=== PATIENT | female | born 1945 | race Caucasian/White ===

== ENCOUNTER → 2024-02-06 13:33 | Outpatient (REF) | payer OTHER, SELFPAY | LOC: WDC 13:33 | PROVIDERS: ATTENDING PHYSICIAN Internal Medicine | DX: Z12.31 Encounter for screening mammogram for malignant neoplasm of breast (principal) | CPT/HCPCS: 77063; 77067 ==

== ENCOUNTER → 2024-05-04 13:02 | Outpatient (REF) | payer OTHER, SELFPAY | LOC: HWRCS 13:02 | PROVIDERS: ATTENDING PHYSICIAN Internal Medicine; FAMILY PHYSICIAN Internal Medicine | DX: I10 Essential (primary) hypertension (principal); I45.10 Unspecified right bundle-branch block; I44.0 Atrioventricular block, first degree | CPT/HCPCS: 93306 ==

== ENCOUNTER 2025-03-08 12:25 | Inpatient (IN) | payer OTHER, SELFPAY ==
[2025-03-08] VITALS (12 sets, daily range): BP systolic 135–203; BP diastolic 71–121; BMI 28.3
--- NOTE | 2025-03-08 04:58 | ED.GENMED ---
History of Present Illness
<Timmy Christopher MD - Last Filed: 03/08/25 13:41>
General
Chief Complaint: Flank Pain
Source: patient
Exam Limitations: none
Time Seen by Provider: 03/08/25 04:47
Nursing documentation reviewed up to this point in time: agreed with
History of Present Illness
History of Present Illness:
Patient presents to ED secondary to persistent right flank pain over the past 24 hours. Patient reports nausea sensation without vomiting. Denies fever or chills. Denies trauma. Denies recent illness. Denies recent change in medications or
diet. Denies difficulty with urination. Denies previous history of similar symptoms. Denies family history of kidney stones or gallstones. Patient reports having had normal dinner last night, consisting of chicken pot pie, which did not affect
her pain.
Past History
<Timmy Christopher MD - Last Filed: 03/08/25 13:41>
Past History
ED Past Medical History: Asthma, HTN, NIDDM, Psychiatric (depression) and Other (Sleep apnea, arthritis, RBBB)
ED Past Surgical History: Gynecological (Hysterectomy) and Orthopedic
Social History
Tobacco: Non-smoker
Alcohol: None
Drug: None
Review of Systems
<Timmy Christopher MD - Last Filed: 03/08/25 13:41>
Review of Systems
Allergies reviewed?: Yes
All Other Systems: ROS reviewed and negative except as documented in HPI and ROS
Constitutional: Reports no symptoms; Denies fever
Respiratory: Reports no symptoms
Cardiac: Reports no symptoms
ABD/GI: Reports nausea; Denies vomiting
: Reports flank pain; Denies frequency or difficulty voiding
Musculoskeletal: Reports no symptoms
Skin: Reports no symptoms
Neurological: Reports no symptoms
Phy Exam
<Timmy Christopher MD - Last Filed: 03/08/25 13:41>
Physical Exam
Physical Exam:
Physical Exam
General: mild painful distress, not acutely ill. afebrile
Head: nc/at. eomi
Neck: supple. normal range of motion
Heart: s1/s2 regular rate and rhythm
Lungs: no acute respiratory distress. clear bilaterally
Abdomen: normal bowel sounds. no distention. mild RUQ tenderness to palpation
Neuro: alert and oriented x 3. no focal neurological deficits
Skin: no rash
Psychiatric: well kept. interactive and cooperative
Extremities: no edema. no calf tenderness
Course
<Timmy Christopher MD - Last Filed: 03/08/25 13:41>
Orders/Labs/Results
Orders:
Orders
03/08/25 04:54
US Abdomen Complete/Upper Urgent
Comment:
Reason For Exam: RUQ pain
03/08/25 04:55
Ketorolac [Toradol] 15 mg IV NOW STA
03/08/25 04:56
0.9% Sodium Chloride 250 ml [Nss] 250 ml IV BOLUS
Pantoprazole [Protonix IV] 40 mg IV NOW STA
03/08/25 04:59
Complete Blood Count/With Diff Urgent
Comprehensive Metabolic Panel Urgent
Lipase Urgent
Urinalysis Reflex To Culture Urgent
Date Specimen was Collected: 03/08/25
Time Specimen was Collected: 04:43
Urine Microscopic Reflex Cult Urgent
Urine Culture Urgent
MICHELLE Source: U
Specimen Description:
Date Specimen was Collected: 03/08/25
Time Specimen was Collected: 04:43
03/08/25 Breakfast
1800 calorie (15 carb) Diabetic
At Your Request: Full Participation
03/08/25 06:34
HYDROmorphone [Dilaudid] 0.5 mg IV NOW STA
03/08/25 06:47
CT Abd/pelvis W Iv Cont Urgent
Comment:
Reason For Exam: right sided abdominal pain
03/08/25 09:45
0.9% Sodium Chloride 1000 ml [Nss] 1,000 ml IV BOLUS
Piperacillin/Tazo 4.5 Gram [Zosyn] 4.5 gram in 100 ml IV NOW
03/08/25 10:43
Blood Culture Q30M
MICHELLE Source: Blood/Venous
Specimen Description:
Blood Culture Q30M
MICHELLE Source: Blood/Venous
Specimen Description:
Urine Culture Urgent
MICHELLE Source: Urine
Specimen Description:
Obtained by: Clean Catch/Mid Stream
Date Specimen was Collected: 03/08/25
Time Specimen was Collected: 10:40
03/08/25 11:02
UROLOGY CONSULT Routine
Consulting Provider: Luis Fernando Coleman Jr.
Was physician already notified: Yes
Comment: suspected infected kidney stone pyelonephritis
03/08/25 11:51
Admit/Transfer Patient As Directed
Co-Sign Provider:
Level of Care: Inpatient admission
Assign to:: Telemetry
Physician / Group: Blaise Marx
Diagnosis: Suspected right Pyelonephritis possibly d/t kidney stone
Reason for Telemetry: Arrhythmia
Date to Stop Telemetry: 03/11/25
Time to Stop Telemetry: 11:00
Reason for Hospitalization: Suspected right Pyelonephritis possibly d/t kidney stone
Expected length of stay greater than two midnights?: Yes
ELOS- Estimated Length of Stay in days: 2
I certify the patient meets the requirements for IP care: Yes
PRN Pain Medication Management As Directed
May give lesser potent ordered pain med per pt: Yes
preference::
Protocol:: Medication orders for pain may be administered in a
manner that supports deferring to patient preference
when the pt is:
- Requesting an ordered lesser potent pain medication.
Least to most potent pain medications are defined
as: acetaminophen < NSAID < tramadol < opioids
(morphine, oxycodone, hydromorphone).
- Requesting a lesser dose of the same medication IF
ORDERED.
- Requesting a less intrusive route of administration
if both routes are prescribed by the provider (PO <
IV).
03/08/25 11:59
Code Status As Directed
Resuscitation Status: Full Code
03/08/25 12:04
HYDROmorphone [Dilaudid] 0.5 mg IV NOW STA
03/08/25 13:11
0.9% Sodium Chloride 1000 ml [Nss] 1,000 ml IV 80 mls/hr
Acetaminophen [Tylenol] 650 mg PO Q4HPRN PRN
Bisacodyl [Dulcolax] 10 mg RECTAL [id number] PRN
Bupropion(24Hr)Extended Releas [WELLBUTRIN XL (24 hour extended release)] 150 mg PO DAILY
Dextrose 50%-Water [Dextrose 50% Syringe] 12.5 grams IV [id number] PRN
Diltiazem Extended Release [Cardizem Cd] 270 mg PO DAILY
Docusate W/Senna [Senokot-S] 1 tablet PO BIDPRN PRN
Duloxetine Delayed Release [Cymbalta Delayed Release] 90 mg PO DAILY
Glucagon [GlucaGen] 1 mg IM PRN PRN
HYDROmorphone [Dilaudid] 0.5 mg IV Q4HPRN PRN
HydrALAZINE [Apresoline] 5 mg IV Q4HPRN PRN
Hydrochlorothiazide [Oretic] 25 mg PO DAILY
Ipratropium/Albuterol Sulfate [Duoneb] 3 ml INH R Q4HPRN PRN
Losartan [Cozaar] 100 mg PO DAILY
Polyethylene Glycol Powder [Miralax] 17 grams PO DAILYPRN PRN
vgmevhfwzzy-yrcylyjwp-pnagejir [Trelegy Ellipta] 1 inh INH DAILY
03/08/25 13:11
Activity As Directed
Activity Level: With Assistance
Bedside Glucose Monitoring As Directed
Frequency: AC&HS
Additional Instructions:: Change to q6h if pt on TPN, tube feeding or not eating
Vital Signs As Directed
Frequency: Per unit guidelines
Cpap [RESP] Routine
Patient to use own unit?: Yes
DX Deep Vein Thrombosis Video Routine
03/08/25 13:35
Magnesium Routine
03/08/25 16:30
Insulin Aspart Corrective Low [Novolog Flexpen-Low Resistance] See Protocol SC AC
03/08/25 18:00
Enoxaparin Sodium [Lovenox] 40 mg SC QPM
03/08/25 22:00
Atorvastatin [Lipitor] 10 mg PO HS
03/09/25 06:00
Basic Metabolic Panel IN AM
Complete Blood Count/No Diff IN AM
Glycohemoglobin (HgbA1c) IN AM
Magnesium IN AM
03/09/25 08:00
Montelukast Sodium [Singulair] 10 mg PO DAILY
03/10/25 06:00
Basic Metabolic Panel IN AM
Complete Blood Count/No Diff IN AM
Magnesium IN AM
03/11/25 06:00
Basic Metabolic Panel IN AM
Complete Blood Count/No Diff IN AM
Magnesium IN AM
03/11/25 11:00
DC Protocol for Telemetry ONCE
03/12/25 06:00
Basic Metabolic Panel IN AM
Complete Blood Count/No Diff IN AM
Magnesium IN AM
03/13/25 06:00
Basic Metabolic Panel IN AM
Complete Blood Count/No Diff IN AM
Magnesium IN AM
03/14/25 06:00
Basic Metabolic Panel IN AM
Complete Blood Count/No Diff IN AM
Magnesium IN AM
03/15/25 06:00
Basic Metabolic Panel IN AM
Complete Blood Count/No Diff IN AM
Magnesium IN AM
Abnormal Lab Results
03/08/25
04:59
WBC 17.4 H 10^3/uL
(4.8-10.8)
RBC 6.58 H 10^6/uL
(4.20-5.40)
Hgb 19.9 H g/dL
(12.0-16.0)
Hct 59.7 H %
(37.0-47.0)
Abs Immat Gran (auto) 0.1 H 10^3/uL
(0-0.05)
Absolute Neuts (auto) 12.2 H 10^3/uL
(1.4-6.5)
Absolute Monos (auto) 1.1 H 10^3/uL
(0.1-0.6)
Lymphocytes % 19.4 L %
(20.5-51.1)
Carbon Dioxide 33 H mmol/L
(22-30)
Glucose 200 H mg/dl
(70-99)
Alkaline Phosphatase 136 H U/L
(38-126)
Ur Occult Blood Reflex 1+ A
(Negative)
Leukocyte Esterase Rfl 1+ A
(Negative)
Urine Bacteria (Reflex) Few A
(Negative)
Urine Yeast Many A
(Negative)
Urine Glucose 4+ A
(Negative)
Urine Albumin (Reflex) 3+ A
(Neg - Trace)
03/08/25 04:59
03/08/25 04:59
Vital Signs
Initial and Last Documented VS:
Initial Vital Signs
Temp Pulse Resp BP Pulse Ox
97.9 F 108 20 203/121 95
03/08/25 04:22 03/08/25 04:22 03/08/25 04:22 03/08/25 04:22 03/08/25 04:22
Last Documented Vital Signs
Temp Pulse Resp BP Pulse Ox
97.8 F 84 16 194/99 95
03/08/25 13:20 03/08/25 13:35 03/08/25 13:35 03/08/25 13:35 03/08/25 13:35
<Rachel Reidrober, DO - Last Filed: 03/08/25 09:50>
Orders/Labs/Results
Orders:
Orders
03/08/25 04:54
US Abdomen Complete/Upper Urgent
Comment:
Reason For Exam: RUQ pain
03/08/25 04:55
Ketorolac [Toradol] 15 mg IV NOW STA
03/08/25 04:56
0.9% Sodium Chloride 250 ml [Nss] 250 ml IV BOLUS
Pantoprazole [Protonix IV] 40 mg IV NOW STA
03/08/25 04:59
Complete Blood Count/With Diff Urgent
Comprehensive Metabolic Panel Urgent
Lipase Urgent
Urinalysis Reflex To Culture Urgent
Date Specimen was Collected: 03/08/25
Time Specimen was Collected: 04:43
Urine Microscopic Reflex Cult Urgent
Urine Culture Urgent
MICHELLE Source: U
Specimen Description:
Date Specimen was Collected: 03/08/25
Time Specimen was Collected: 04:43
03/08/25 Breakfast
1800 calorie (15 carb) Diabetic
At Your Request: Full Participation
03/08/25 06:34
HYDROmorphone [Dilaudid] 0.5 mg IV NOW STA
03/08/25 06:47
CT Abd/pelvis W Iv Cont Urgent
Comment:
Reason For Exam: right sided abdominal pain
03/08/25 09:45
0.9% Sodium Chloride 1000 ml [Nss] 1,000 ml IV BOLUS
Piperacillin/Tazo 4.5 Gram [Zosyn] 4.5 gram in 100 ml IV NOW
03/08/25 10:43
Blood Culture Q30M
MICHELLE Source: Blood/Venous
Specimen Description:
Blood Culture Q30M
MICHELLE Source: Blood/Venous
Specimen Description:
Urine Culture Urgent
MICHELLE Source: Urine
Specimen Description:
Obtained by: Clean Catch/Mid Stream
Date Specimen was Collected: 03/08/25
Time Specimen was Collected: 10:40
03/08/25 11:02
UROLOGY CONSULT Routine
Consulting Provider: Luis Fernando Coleman Jr.
Was physician already notified: Yes
Comment: suspected infected kidney stone pyelonephritis
03/08/25 11:51
Admit/Transfer Patient As Directed
Co-Sign Provider:
Level of Care: Inpatient admission
Assign to:: Telemetry
Physician / Group: Blaise Marx
Diagnosis: Suspected right Pyelonephritis possibly d/t kidney stone
Reason for Telemetry: Arrhythmia
Date to Stop Telemetry: 03/11/25
Time to Stop Telemetry: 11:00
Reason for Hospitalization: Suspected right Pyelonephritis possibly d/t kidney stone
Expected length of stay greater than two midnights?: Yes
ELOS- Estimated Length of Stay in days: 2
I certify the patient meets the requirements for IP care: Yes
PRN Pain Medication Management As Directed
May give lesser potent ordered pain med per pt: Yes
preference::
Protocol:: Medication orders for pain may be administered in a
manner that supports deferring to patient preference
when the pt is:
- Requesting an ordered lesser potent pain medication.
Least to most potent pain medications are defined
as: acetaminophen < NSAID < tramadol < opioids
(morphine, oxycodone, hydromorphone).
- Requesting a lesser dose of the same medication IF
ORDERED.
- Requesting a less intrusive route of administration
if both routes are prescribed by the provider (PO <
IV).
03/08/25 11:59
Code Status As Directed
Resuscitation Status: Full Code
03/08/25 12:04
HYDROmorphone [Dilaudid] 0.5 mg IV NOW STA
03/08/25 13:11
0.9% Sodium Chloride 1000 ml [Nss] 1,000 ml IV 80 mls/hr
Acetaminophen [Tylenol] 650 mg PO Q4HPRN PRN
Bisacodyl [Dulcolax] 10 mg RECTAL [id number] PRN
Bupropion(24Hr)Extended Releas [WELLBUTRIN XL (24 hour extended release)] 150 mg PO DAILY
Dextrose 50%-Water [Dextrose 50% Syringe] 12.5 grams IV [id number] PRN
Diltiazem Extended Release [Cardizem Cd] 270 mg PO DAILY
Docusate W/Senna [Senokot-S] 1 tablet PO BIDPRN PRN
Duloxetine Delayed Release [Cymbalta Delayed Release] 90 mg PO DAILY
Glucagon [GlucaGen] 1 mg IM PRN PRN
HYDROmorphone [Dilaudid] 0.5 mg IV Q4HPRN PRN
HydrALAZINE [Apresoline] 5 mg IV Q4HPRN PRN
Hydrochlorothiazide [Oretic] 25 mg PO DAILY
Ipratropium/Albuterol Sulfate [Duoneb] 3 ml INH R Q4HPRN PRN
Losartan [Cozaar] 100 mg PO DAILY
Polyethylene Glycol Powder [Miralax] 17 grams PO DAILYPRN PRN
cncecmcyqvp-oioyqknpj-xtplisob [Trelegy Ellipta] 1 inh INH DAILY
03/08/25 13:11
Activity As Directed
Activity Level: With Assistance
Bedside Glucose Monitoring As Directed
Frequency: AC&HS
Additional Instructions:: Change to q6h if pt on TPN, tube feeding or not eating
Vital Signs As Directed
Frequency: Per unit guidelines
Cpap [RESP] Routine
Patient to use own unit?: Yes
DX Deep Vein Thrombosis Video Routine
03/08/25 13:35
Magnesium Routine
03/08/25 16:30
Insulin Aspart Corrective Low [Novolog Flexpen-Low Resistance] See Protocol SC AC
03/08/25 18:00
Enoxaparin Sodium [Lovenox] 40 mg SC QPM
03/08/25 22:00
Atorvastatin [Lipitor] 10 mg PO HS
03/09/25 06:00
Basic Metabolic Panel IN AM
Complete Blood Count/No Diff IN AM
Glycohemoglobin (HgbA1c) IN AM
Magnesium IN AM
03/09/25 08:00
Montelukast Sodium [Singulair] 10 mg PO DAILY
03/10/25 06:00
Basic Metabolic Panel IN AM
Complete Blood Count/No Diff IN AM
Magnesium IN AM
03/11/25 06:00
Basic Metabolic Panel IN AM
Complete Blood Count/No Diff IN AM
Magnesium IN AM
03/11/25 11:00
DC Protocol for Telemetry ONCE
03/12/25 06:00
Basic Metabolic Panel IN AM
Complete Blood Count/No Diff IN AM
Magnesium IN AM
03/13/25 06:00
Basic Metabolic Panel IN AM
Complete Blood Count/No Diff IN AM
Magnesium IN AM
03/14/25 06:00
Basic Metabolic Panel IN AM
Complete Blood Count/No Diff IN AM
Magnesium IN AM
03/15/25 06:00
Basic Metabolic Panel IN AM
Complete Blood Count/No Diff IN AM
Magnesium IN AM
Abnormal Lab Results
03/08/25
04:59
WBC 17.4 H 10^3/uL
(4.8-10.8)
RBC 6.58 H 10^6/uL
(4.20-5.40)
Hgb 19.9 H g/dL
(12.0-16.0)
Hct 59.7 H %
(37.0-47.0)
Abs Immat Gran (auto) 0.1 H 10^3/uL
(0-0.05)
Absolute Neuts (auto) 12.2 H 10^3/uL
(1.4-6.5)
Absolute Monos (auto) 1.1 H 10^3/uL
(0.1-0.6)
Lymphocytes % 19.4 L %
(20.5-51.1)
Carbon Dioxide 33 H mmol/L
(22-30)
Glucose 200 H mg/dl
(70-99)
Alkaline Phosphatase 136 H U/L
(38-126)
Ur Occult Blood Reflex 1+ A
(Negative)
Leukocyte Esterase Rfl 1+ A
(Negative)
Urine Bacteria (Reflex) Few A
(Negative)
Urine Yeast Many A
(Negative)
Urine Glucose 4+ A
(Negative)
Urine Albumin (Reflex) 3+ A
(Neg - Trace)
03/08/25 04:59
03/08/25 04:59
Vital Signs
Initial and Last Documented VS:
Initial Vital Signs
Temp Pulse Resp BP Pulse Ox
97.9 F 108 20 203/121 95
03/08/25 04:22 03/08/25 04:22 03/08/25 04:22 03/08/25 04:22 03/08/25 04:22
Last Documented Vital Signs
Temp Pulse Resp BP Pulse Ox
97.8 F 84 16 194/99 95
03/08/25 13:20 03/08/25 13:35 03/08/25 13:35 03/08/25 13:35 03/08/25 13:35
<Timmy Christopher MD - Last Filed: 03/08/25 13:41>
*Pulse Oximetry
SaO2: 95
Oxygen Mode of Delivery: Room air
Patient hypoxic: no
*Critical Care Note
Total Time (30-74mins, 75-104mins- exclusive of procedures): Not Applicable
<Rachel Villegas DO - Last Filed: 03/08/25 09:50>
Update Note
Update Note:
Attending Sign Out Note (Rachel Villegas DO)
07:30 -assuming care of of patient, 79-year-old female presenting for upper abdominal pain and flank pain for the past 2 days. Noted to be focally tender to the right upper quadrant region. Workup thus far significant for leukocytosis. Initially
had right upper quadrant ultrasound, unremarkable. For this reason pending CT abdomen and pelvis. Received Dilaudid for pain.
08:45 -patient CT without significant pathology, however there is mention of possible tiny nonobstructing right distal ureteral calculus, not entirely visualized. Urine does show some WBCs otherwise no concerning features of profound urinary
infection, mild leuks. On my reassessment, kidney stone would certainly fit with patient's symptoms, no right lower quadrant abdominal pain with radiation to her flank. In discussion with urology, will review patient's imaging
09:45 -images reviewed and case discussed with Dr. Coleman who is all suspicious for acute stone or infected stone. Feels reasonable for cultures, antibiotics, and consultation. Will continue to monitor symptoms and if no clinical improvement, will
consider scoping her. Will discuss with hospitalist for admission
ED Attending Note
<Timmy Christopher MD - Last Filed: 03/08/25 13:41>
-
Portions of this chart may have been created with voice recognition software.� Occasional wrong word or��sound alike� substitutions may have occurred due to the inherent limitations of voice recognition software.
Discharge Plan
Departure
Patient Disposition: Admit
Date of Disposition: 03/08/25
Time of Disposition: 09:51
Presentation/result/management discussed w/ accepting MD/DO: Hospitalist
Patient with high blood pressure during this ER visit?: No
Condition: Fair
Discharge Problem:
Right sided abdominal pain
Interventions
Interventions:
*Risk Screen - Suicide Last Done: 03/08/25 04:25
*General Assessment Last Done: 03/08/25 04:25
*Neglect/Abuse Screening Last Done: 03/08/25 04:25
*ED- Fall Risk Assessment Last Done: 03/08/25 04:25
*ED COVID-19 Vaccine History Last Done: 03/08/25 04:25
*ED Influenza Vaccine History Last Done: 03/08/25 04:25
*Nursing Disposition Last Done: 03/08/25 13:35
DV-Ziwary-Tviatanzmq Assessment Last Done: 03/08/25 05:29
ED-Female Genitourinary Assessment Last Done: 03/08/25 05:29
Discharge Date and Time
Discharge Date/Time: 03/08/25 13:05
[2025-03-08] MEDS: TORADOL 15 MG IV (05:11)
[2025-03-08] MEDS: PROTONIX IV 40 MG IV (05:12)
[2025-03-08] MEDS: NSS 250 IV (05:13)
[2025-03-08 05:20] LABS: Urine Character Clear (Clear)
[2025-03-08 05:39] LABS: Hematocrit 59.7 % (37.0-47.0); Hemoglobin 19.9 g/dL (12.0-16.0); Mean Corp Hgb Conc. 33.3 g/dL (33.0-37.0); Mean Corpuscular Volume 90.7 fL (81.0-99.0); Nucleated Red Blood Cells % 0 %; Platelet Count 289 10^3/uL (130-400); Red Cell Dist. Width 13.7 % (11.5-14.5)
[2025-03-08 05:41] LABS: ALT (SGPT) 21 U/L (0-35); AST (SGOT) 24 U/L (14-36); Albumin 4.5 g/dl (3.5-5.0); Alkaline Phosphatase 136 U/L (38-126); Blood Urea Nitrogen 16 mg/dl (7-17); Calcium 9.7 mg/dl (8.4-10.2); Carbon Dioxide 33 mmol/L (22-30); Chloride 101 mmol/L (98-107); Glucose 200 mg/dl (70-99); Lipase 174 U/L (23-300); Potassium 3.8 mmol/L (3.5-5.1); Sodium 142 mmol/L (135-145); Total Protein 7.9 g/dl (6.3-8.2); eGFR > 60.00
[2025-03-08 06:23] LABS: Urine Squamous Cell >30 /LPF (Few)
[2025-03-08 06:25] LABS: Urine Red Blood Cell 0-2 /HPF (0-2)
[2025-03-08] MEDS: DILAUDID 0.5 MG IV ×4 (06:52→21:59)
--- NOTE | 2025-03-08 09:56 | HPS.HSE ---
Family Physician
-
Family Physician: Bernard Quintero
Chief Complaint
-
Right Flank pain
History of Present Illness
79F Asthma HTN NIDDM Depression sleep apnea presents w/ persistent right flank pain over the past 24 hours. Reports nausea denies vomiting, fever, chills, trauma, or dysuria. Denies previous history of similar symptoms. ED eval notable for
leukocytosis hypertensive urgency (patient has not taken her morning blood pressure medications prior to presentation to ED). Afebrile, non-tachy, stable respiratory status on room air. CT noted possible right kidney stone distal ureter
nonobstructing.
Medical History
Past Medical History
Past Medical History: Reports Other (as above)
Past Surgical History: Reports Other (as above)
Social History
Tobacco: Non-smoker
Alcohol: None
Drug: None
Personal:
Living: With Family
Family History
Family History: Not pertinent (reviewed)
Allergies / Home Medications
Allergies reflects when Allergies were last updated in [facility].
Home Medications with original date entered in [facility]
Allergy/Medication List:
Allergies
Allergy/AdvReac Type Severity Reaction Status Date / Time
penicillin G Allergy Pharmacy Verified 03/08/25 04:51
to Review
grass/trees Allergy coughing Uncoded 03/08/25 04:51
surgical tape Allergy Rash Uncoded 03/08/25 04:51
Home Medications
atorvastatin 10 mg tablet (Lipitor) 10 mg PO HS 05/09/08
metformin 1,000 mg tablet (Glucophage) 1,000 mg PO DAILY 05/09/08
sitagliptin phosphate 100 mg tablet (Januvia) 100 mg PO DAILY 05/09/08
duloxetine 60 mg capsule,delayed release 90 mg PO DAILY 09/14/13
bupropion HCl 300 mg 24 hr tablet, extended release 150 mg PO DAILY 03/09/16
diltiazem HCl 180 mg tablet,extended release 24 hr (Matzim LA) 270 mg PO DAILY 03/08/25
dulaglutide 1.5 mg/0.5 mL subcutaneous pen injector (Trulicity) 1.5 mg SC QWEEK 03/08/25
empagliflozin 25 mg tablet (Jardiance) 25 mg PO DAILY 03/08/25
fluticasone fur. 100 mcg-umeclid 62.5 mcg-vilant 25 mcg inhalat.powder (Trelegy Ellipta) 1 inh inhalation DAILY 03/08/25
glimepiride 4 mg tablet 8 mg PO DAILY 03/08/25
hydrochlorothiazide 25 mg tablet 25 mg PO DAILY 03/08/25
losartan 100 mg tablet 100 mg PO DAILY 03/08/25
montelukast 10 mg tablet 10 mg PO DAILY 03/08/25
Review of Systems
-
A 12 point ROS was completed and negative except as noted: Yes
Constitutional: Reports Other (as below)
Physical Exam
Vital Signs
Vital Signs
Temp Pulse Resp BP Pulse Ox
97.9 F 108 20 172/93 91
03/08/25 04:22 03/08/25 04:22 03/08/25 04:22 03/08/25 08:00 03/08/25 09:40
Physical Exam
General: Other (as below)
Laboratory Results
-
03/08/25 04:59
03/08/25 04:59
Laboratory Results
Total Bilirubin 0.6 mg/dl (0.2-1.3) 03/08/25 04:59
AST 24 U/L (14-36) 03/08/25 04:59
ALT 21 U/L (0-35) 03/08/25 04:59
Alkaline Phosphatase 136 U/L (38-126) H 03/08/25 04:59
Lipase 174 U/L (23-300) 03/08/25 04:59
Impression/Plan
-
ROS
General: Denies fever chills night sweats unexpected weight loss
Neuro: Denies seizure shaking loss of consciousness dizziness vertigo
Psych: denies depression hallucinations confusion manic episodes
Endocrine: Denies polyuria polydipsia polyphagia heat/cold intolerance
HEENT: Denies blindness visual disturbances epistaxis
Pulmonary: denies coughing hemoptysis sneezing sob dyspnea on exertion
Cardiovascular: denies chest pain palpitations leg swelling
Hematology: denies signs symptoms of anemia easy bruising/bleeding
Gastrointestinal: reports nausea denies vomiting diarrhea constipation hematemesis hematochezia melena
Genito-Urinary: denies retention incontinence dysuria, reports right flank pain/tenderness
Musculoskeletal: denies joint pain weakness
Dermatology: denies rash laceration bruising
Physical Exam
General: No pallor, cyanosis, or jaundice.
HEENT: Throat clear. PERRLA Normocephalic atraumatic
NECK: Supple. No JVD Carotid Bruits
RESPIRATORY: Lungs clear to auscultation. No crackles wheezes stridor
CVS: S1, S2 normal. RRR. No murmur, rub or gallop.
ABDOMEN: Soft, No distension. BS+/normal. right sided flank pain tenderness
EXTREMITIES: No peripheral cyanosis or edema.
GAME AND [employer] PROTECTOR: AOx3 conversant coherent
IMPRESSION:
79F Asthma HTN NIDDM Depression sleep apnea presents w/ persistent right flank pain over the past 24 hours. Reports nausea denies vomiting, fever, chills, trauma, or dysuria. Denies previous history of similar symptoms. ED eval notable for
leukocytosis hypertensive urgency (patient has not taken her morning blood pressure medications prior to presentation to ED). Afebrile, non-tachy, stable respiratory status on room air. CT noted possible right kidney stone distal ureter
nonobstructing.
PLAN:
#suspect Rt Pyelonephritis though UA not suggestive UTI
#nausea
Tele admit
trend WBC, non-septic appearance
received empiric zosyn in ED, cont with Ceftriaxone 2g daily for now
follow urine/blood cx's
Urology Eval
IVF support, unclear how much patient will be able to eat given nausea
compazine prn nausea
pain control prn Tylenol, IV dilaudid Q4HPRN mod severe pain
#Hypertensive Urgency missed BP medications
resume home antihypertensives w/ holding parameters
Cardizem, HCTZ, Losartan
Hydralazine prn SBP>180 or DBP>100
#NIDDM
hold home oral diabetic medications Metformin, Jardiance, Glimepiride
check A1c
Low dose sliding scale for now, monitor and adjust insulin regimen as necessary
carb controlled diet
Patient on Trulicity 1.5 mg she takes on Tuesday
#Depression
cont home Bupropion and Duloxetine
#Asthma
cont home montelukast and Trelegy
stable respiratory status on room air
DVT ppx Lovenox
Full Code
I spent a total of 80 minutes with the patient or on the floor. More than 50% of this time involved counseling and coordination of care.
[2025-03-08] MEDS: ZOSYN 100 IV (10:43)
[2025-03-08] MEDS: NSS 1000 IV ×2 (10:44→15:16)
--- NOTE | 2025-03-08 13:32 | EDRN ---
Patient taken to room 337-1 on stretcher on monitor by sound effects technician.
[2025-03-08 13:57] LABS: Magnesium 2.0 mg/dl (1.6-2.3)
--- NOTE | 2025-03-08 15:12 | RESPNOTE ---
Patient is not bringing her cpap tonight and does not want to use ours , she states she does not think she will be here long and will refuse it tonight
[2025-03-08] MEDS: ROCEPHIN 2000 MG IV (15:57)
[2025-03-08] MEDS: COZAAR 100 MG PO (15:58)
[2025-03-08] MEDS: ORETIC 25 MG PO (15:58)
[2025-03-08] MEDS: STERILE WATER FOR INJECTION 20 ML IV (15:58)
[2025-03-08 16:33] LABS: Glucose - Point of Care 147 mg/dl (70-99)
[2025-03-08] MEDS: APRESOLINE 5 MG IV (16:36)
[2025-03-08] MEDS: COMPAZINE 5 MG IV (16:37)
--- NOTE | 2025-03-08 16:53 | CON.MD ---
Consultation - Medical
-
see dictated note
pt with no prior gu hx
admitted with acute right flank pain
hurts to lie on that side
no urinary sx's or hematuria
wbc elevated/ua negatived/ct with multiple phleboliths- no obstruction with dye- but ? distal right stone
pt still with pain- vomiting but chronic nausea
plan
sx's c/w with stone- but objective data not supportive
will continue iv atnibx/pain control
npo after midnight- if any fevers/wbc does not decline or wbc remains elevated- would consider diagnostic ureteroscopy in OR
options reviewed with patient
Consultation
-
Date/Time Consultation Requested: 03/08/25 at 10am
Date/Time Consultation Performed: 03/08/25 at 5pm
Requesting Provider: ER
Performing Provider: Dr Coleman
Reason for Consultation: flank pain
[2025-03-08] MEDS: SYMBICORT 80/4.5 MCG INHALER 2 PUFF INH (17:58)
[2025-03-08 21:50] LABS: Glucose - Point of Care 145 mg/dl (70-99)
[2025-03-08] MEDS: LIPITOR 10 MG PO (21:58)
[2025-03-09] VITALS (12 sets, daily range): BP systolic 165–214; BP diastolic 63–107
[2025-03-09] MEDS: NSS 1000 IV (02:46)
[2025-03-09] MEDS: DILAUDID 0.5 MG IV ×3 (04:47→22:02)
[2025-03-09] MEDS: APRESOLINE 5 MG IV ×3 (05:20→22:01)
[2025-03-09 06:11] LABS: Glucose - Point of Care 104 mg/dl (70-99)
[2025-03-09 06:23] LABS: Blood Urea Nitrogen 13 mg/dl (7-17); Calcium 8.5 mg/dl (8.4-10.2); Carbon Dioxide 28 mmol/L (22-30); Chloride 105 mmol/L (98-107); Estimated Creatinine Clearance 68 ml/min; Glucose 101 mg/dl (70-99); Magnesium 1.8 mg/dl (1.6-2.3); Potassium 3.2 mmol/L (3.5-5.1); Sodium 137 mmol/L (135-145); eGFR > 60.00
[2025-03-09 06:25] LABS: Hematocrit 47.9 % (37.0-47.0); Hemoglobin 16.5 g/dL (12.0-16.0); Mean Corp Hgb Conc. 34.4 g/dL (33.0-37.0); Mean Corpuscular Volume 87.6 fL (81.0-99.0); Platelet Count 215 10^3/uL (130-400); Red Cell Dist. Width 13.5 % (11.5-14.5)
[2025-03-09] MEDS: NOVOLOG FLEXPEN-LOW RESISTANCE SC (06:31)
--- NOTE | 2025-03-09 07:05 | W.PN.URO.CBU ---
Today's Communication / Plan
-
OR for ureteroscopy
Assessment / Plan
-
? cause of leukocytosis and right flank pain
multiple phleboliths- ? stone
given persistent of sig right flank pain- have rec OR for ureteroscopy- risks, benefits, alternatives and disabilities reviewed
to OR this am
Diagnosis
-
Date of Service: March 09, 2025
-
Patient Diagnosis:
right flank pain
leukocytosis
? stone
Subjective
-
pt afebrile and wbc declining
still with right flank pain requiring IV narcotic
no sig urinary sx's
Objective
-
Vital Signs
Temp Pulse Resp BP Pulse Ox
98.6 F 92 18 189/96 97
03/09/25 03:00 03/09/25 05:15 03/09/25 03:00 03/09/25 05:15 03/09/25 03:00
Intake and Output
03/08/25 03/09/25 03/10/25
06:59 06:59 06:59
Intake Total 1200 / 1200
Balance 1200 / 1200
Intake:
Oral fluids 240 / 240
IV fluids (Total) 960 / 960
Other:
Number of approximated SMALL 1
amounts of urine
Number of approximated MODERATE 1
amounts of urine
Laboratory Results
03/09/25 05:29
03/09/25 05:29
Review of Systems
-
Constitutional: Fatigue
Respiratory: No Symptoms
Cardiac: No Symptoms
Abdomen/GI: Other (flank pain)
: No Symptoms
Physical Exam
-
General - no acute distress
Abdomen - soft, non-tender, mild right cva tenderness
--- NOTE | 2025-03-09 07:36 | W.PN.HOSP.TC ---
Today's Communication/Plan
-
cont abx
ID eval
Blood Pressure, Glycemic, and Rate Control
pain control, antiemetics prn
Assessment / Plan
Assessment / Plan
Physical Exam
General: No pallor, cyanosis, or jaundice.
HEENT: Throat clear. PERRLA Normocephalic atraumatic
NECK: Supple. No JVD Carotid Bruits
RESPIRATORY: Lungs clear to auscultation. No crackles wheezes stridor
CVS: S1, S2 normal. RRR. No murmur, rub or gallop.
ABDOMEN: Soft, No distension. BS+/normal. right sided flank pain tenderness
EXTREMITIES: No peripheral cyanosis or edema.
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
IMPRESSION:
79F Asthma HTN NIDDM Depression sleep apnea presents w/ persistent right flank pain over the past 24 hours. Reports nausea denies vomiting, fever, chills, trauma, or dysuria. Denies previous history of similar symptoms. ED eval notable for
leukocytosis hypertensive urgency (patient has not taken her morning blood pressure medications prior to presentation to ED). Afebrile, non-tachy, stable respiratory status on room air. CT noted possible right kidney stone distal ureter
nonobstructing.
PLAN:
#suspect Rt Pyelonephritis though UA not suggestive UTI
#nausea
Tele admit
trend WBC, non-septic appearance
received empiric zosyn in ED, cont with Ceftriaxone 2g daily for now
follow urine/blood cx's, one aerobic bottle blood cx prelim pos for staph
ID eval requested
Urology Eval appreciated ureteroscopy performed 03/09/25 no obstruction/stone/lesion noted, stent placed
compazine prn nausea
pain control prn Tylenol, IV dilaudid Q4HPRN mod severe pain
#Hypertensive Urgency missed BP medications
resume home antihypertensives w/ holding parameters
Cardizem, HCTZ, Losartan
Hydralazine prn SBP>180 or DBP>100
#NIDDM
hold home oral diabetic medications Metformin, Jardiance, Glimepiride
A1c 6.4 (prediabetic level)
Low dose sliding scale for now, monitor and adjust insulin regimen as necessary
carb controlled diet
Patient on Trulicity 1.5 mg she takes on Tuesday
#Depression
cont home Bupropion and Duloxetine
#Asthma
cont home montelukast and Trelegy
stable respiratory status on room air
DVT ppx Lovenox
Full Code
I spent a total of 50 minutes with the patient or on the floor. More than 50% of this time involved counseling and coordination of care.
Anticipated Discharge: 24 - 48 hours
Subjective/Interval History
-
Date of Service: March 09, 2025
No acute distress, sitting up comfortably in bed, s/p ureteroscopy. Reports lower abd/pain cramping. Denies nausea.
Objective Data
-
Labs:
Laboratory Results
03/09/25
05:29
WBC 12.5 H
Hgb 16.5 H
Hct 47.9 H
Plt Count 215 D
Sodium 137
Potassium 3.2 L
Chloride 105
Carbon Dioxide 28
BUN 13
Creatinine 0.6
Glucose 101 H
Calcium 8.5
Vital Signs:
Vital Signs
Temp Pulse Resp BP Pulse Ox
98.6 F 92 18 189/96 97
03/09/25 03:00 03/09/25 05:15 03/09/25 03:00 03/09/25 05:15 03/09/25 03:00
I&O
03/08/25 03/09/25 03/10/25
06:59 06:59 06:59
Intake Total 1200 / 1200
Balance 1200 / 1200
[2025-03-09] MEDS: SPIRIVA RESPIMAT 2.5 MCG 2 PUFF INH (07:42)
[2025-03-09] MEDS: SYMBICORT 80/4.5 MCG INHALER 2 PUFF INH ×2 (07:43→20:55)
[2025-03-09 07:52] LABS: Glucose - Point of Care 136 mg/dl (70-99)
[2025-03-09] MEDS: GENTAMICIN 53.375 MG IV (08:07)
[2025-03-09 09:22] LABS: Glycohemoglobin (HgbA1c) 6.4 % (4.0-5.9)
--- NOTE | 2025-03-09 09:42 | W.IMMPOSTOP ---
Surgical Immed Post Op Note
-
Surgeon:
Jared
Pre-op Diagnosis:
right flank pain- possible stone
Post-op Diagnosis:
no obstruction/no stone
Procedure Performed:
cysto, right retrograde, right ureteroscopy and stent
Anesthesia Type:
gen
Specimen / Cultures:
none
Estimated Blood Loss:
1cc
Complications:
none
Operative Findings:
nl bladder
no evid of obstruction on retrograde
ureteroscopy revealed no lesion or stone
stent placed
will follow
[2025-03-09 09:54] LABS: Glucose - Point of Care 128 mg/dl (70-99)
[2025-03-09] MEDS: MORPHINE SULFATE 1 MG IV ×2 (10:06→10:13)
[2025-03-09] MEDS: CARDIZEM CD 180 MG PO (10:10)
[2025-03-09] MEDS: COZAAR 100 MG PO (10:11)
[2025-03-09] MEDS: ORETIC 25 MG PO (10:11)
[2025-03-09] MEDS: WELLBUTRIN XL (24 hour extended release) PO ×2 (11:11→13:22)
[2025-03-09] MEDS: WELLBUTRIN XL (24 hour extended release) 150 MG PO (11:11)
[2025-03-09] MEDS: SINGULAIR PO ×2 (11:11→13:21)
--- NOTE | 2025-03-09 11:28 | CON.ID ---
Consultation
-
Date/Time Consultation Requested: 03/09/2025 0950
Date/Time Consultation Performed: 03/09/2025 1128
Requesting Provider: Dr. Marx
Performing Provider: Dr. Mendoza
Reason for Consultation: Suspected pyelonephritis
Chief Complaint / Past History
History of Present Illness
Haritha Joyce is a 79-year-old female being evaluated the request of Dr. Marx in regards to possible pyelonephritis. History is obtained from chart review, along with patient interview.
The patient presents the ER early on 03/08 secondary to right flank pain which had developed over the prior 24-36 hours. Patient admitted to nausea, but without vomiting. She denied any fevers or chills. She denied any dysuria. She notes that
the right flank pain was approximately 9/10 and persistent. It was not moving. She denied any fevers, but did admit to some chills and sweats prior to admission.
Workup in the ER revealed a leukocytosis of 17K. Patient was evaluated by Urology, and ultimately taken to the OR for cystoscopy. No stone was noted on retrograde ureteroscopy.
Patient has been started on empiric antibiotics, and Infectious Diseases is asked to comment upon further antimicrobial management.
Past History
Additional Past Medical History:
Asthma
HTN
DM type II
Depression
Sleep apnea
Arthritis
Hx RBBB
Additional Past Surgical History:
Hysterectomy
Low back surgery
Allergy History:
penicillin G Allergy (Verified 03/08/25 04:51)
Pharmacy to Review
grass/trees Allergy (Uncoded 03/08/25 04:51)
coughing
surgical tape Allergy (Uncoded 03/08/25 04:51)
Rash
Current Antibiotics:
Ceftriaxone 2 gm IV q.24 hours
Social History
Tobacco: Non-Smoker
Alcohol: None
Drug: None
Employment: Retired
Family History
Family History: Not Pertinent
Review of Systems
Vital Signs
Temp Pulse Resp BP Pulse Ox
98.8 F 106 16 186/88 92
03/09/25 11:16 03/09/25 11:16 03/09/25 11:16 03/09/25 11:16 03/09/25 11:16
Physical Exam
Physical Exam
Constitutional: No Acute Distress, Comfortable and Non-toxic
Eyes: No Conjunctival Hemorrhage and Sclera Anicteric
Oral: No Thrush and No Ulcers
Cardiovascular: S1/S2; Negative S3/S4
Pulmonary: Clear; Negative Wheezes or Rales
Gastrointestinal: Soft, Non Tender, Non Distended, Normal Bowel Sounds, No Rebound and No Guarding
Genito-Urinary: Negative Khan, Suprapubic Tenderness or CVA Tenderness
Extremities: Negative Edema, Cyanosis or Erythema
Neurological: Awake and Alert
Psychological: Calm
Lab / Diagnostic Study Results
03/09/25 05:29
03/09/25 05:29
Abs Immat Gran (auto) 0.1 10^3/uL (0-0.05) H 03/08/25 04:59
Absolute Neuts (auto) 12.2 10^3/uL (1.4-6.5) H 03/08/25 04:59
Absolute Lymphs (auto) 3.4 10^3/uL (1.2-3.4) 03/08/25 04:59
Absolute Monos (auto) 1.1 10^3/uL (0.1-0.6) H 03/08/25 04:59
Absolute Basos (auto) 0.1 10^3/uL (0-0.2) 03/08/25 04:59
Immature Gran % 0.4 % (0-0.5) 03/08/25 04:59
Neutrophils % 70.3 % (42.2-75.2) 03/08/25 04:59
Lymphocytes % 19.4 % (20.5-51.1) L 03/08/25 04:59
Monocytes % 6.4 % (1.7-9.3) 03/08/25 04:59
Eosinophils % 2.9 % (0-6) 03/08/25 04:59
Basophils % 0.6 % (0-2) 03/08/25 04:59
Ur Squamous Epith Cells >30 /LPF (Few) 03/08/25 04:59
Microbiology Results
Micro:
03/08/25 10:43 Blood Culture - Preliminary
Blood/Venous No Growth in 24 hours- Final report to follow
03/08/25 10:43 Urine Culture - Final
Urine
03/08/25 04:59 Urine Culture - Final
Urine
03/08/25 10:43 Blood Culture - Preliminary
Blood/Venous Staphylococcus species
Gram Stain - Preliminary
Imaging:
03/08/2025 CT abdomen/pelvis with IV contrast: symmetric renal excretion noted. Cannot entirely exclude tiny nonobstructing distal right ureteral calculus versus phlebolith. Limited evaluation of the intestinal tract without oral contrast, but no
intestinal obstruction or free air noted. Sigmoid diverticulosis noted. Unremarkable appendix. Please see full dictation for additional detail.
03/08/2025 Abdominal ultrasound: liver is normal in size. No focal hepatic lesion or intrahepatic biliary dilatation. Normal directional blood flow through the hepatic and portal veins. Gallbladder is physiologically distended with fluid and
shows no shadowing calculi or
Assessment / Plan
Right flank pain
- Passed stone?
Leukocytosis
Positive blood culture for staph species
- suspect contaminant
Asthma
HTN
DM type II
Depression
Sleep apnea
Arthritis
Hx RBBB
Recommendations:
Continue with empiric ceftriaxone for the present.
Monitor white count and temperature curve.
Follow pending cultures. Suspect single positive blood culture is a contaminant, no need to treat at present.
Continue with supportive measures.
Further recommendations as additional data is returned.
[2025-03-09] MEDS: TYLENOL 650 MG PO (11:53)
[2025-03-09] MEDS: CYMBALTA DELAYED RELEASE 30 MG PO (11:54)
[2025-03-09] MEDS: CARDIZEM SR 90 MG PO (11:54)
[2025-03-09] MEDS: COMPAZINE 5 MG IV (12:13)
[2025-03-09 12:38] LABS: Glucose - Point of Care 159 mg/dl (70-99)
[2025-03-09] MEDS: NOVOLOG FLEXPEN-LOW RESISTANCE 1 UNITS SC (12:50)
[2025-03-09] MEDS: KCL ELIXIR 40 MEQ PO (13:36)
[2025-03-09 16:57] LABS: Glucose - Point of Care 223 mg/dl (70-99)
[2025-03-09] MEDS: ROCEPHIN 2000 MG IV (17:26)
[2025-03-09] MEDS: NOVOLOG FLEXPEN-LOW RESISTANCE 2 UNITS SC (17:27)
[2025-03-09] MEDS: STERILE WATER FOR INJECTION 20 ML IV (17:27)
[2025-03-09 21:28] LABS: Glucose - Point of Care 218 mg/dl (70-99)
[2025-03-09] MEDS: LIPITOR 10 MG PO (22:01)
[2025-03-09] MEDS: KLOR-CON 20 MEQ PO (22:01)
[2025-03-10] VITALS (7 sets, daily range): BP systolic 129–182; BP diastolic 55–89
[2025-03-10 05:44] LABS: Hematocrit 52.6 % (37.0-47.0); Hemoglobin 17.8 g/dL (12.0-16.0); Mean Corp Hgb Conc. 33.8 g/dL (33.0-37.0); Mean Corpuscular Volume 89.6 fL (81.0-99.0); Platelet Count 261 10^3/uL (130-400); Red Cell Dist. Width 13.5 % (11.5-14.5)
[2025-03-10 06:14] LABS: Blood Urea Nitrogen 15 mg/dl (7-17); Calcium 9.5 mg/dl (8.4-10.2); Carbon Dioxide 30 mmol/L (22-30); Chloride 102 mmol/L (98-107); Estimated Creatinine Clearance 58 ml/min; Glucose 153 mg/dl (70-99); Magnesium 1.9 mg/dl (1.6-2.3); Potassium 4.1 mmol/L (3.5-5.1); Sodium 137 mmol/L (135-145); eGFR > 60.00
[2025-03-10] MEDS: TYLENOL 650 MG PO (06:20)
[2025-03-10 07:28] LABS: Glucose - Point of Care 147 mg/dl (70-99)
[2025-03-10] MEDS: NOVOLOG FLEXPEN-LOW RESISTANCE SC (07:39)
[2025-03-10] MEDS: WELLBUTRIN XL (24 hour extended release) 300 MG PO (08:16)
[2025-03-10] MEDS: CARDIZEM CD 240 MG PO (08:17)
[2025-03-10] MEDS: ORETIC 25 MG PO (08:18)
[2025-03-10] MEDS: COZAAR 100 MG PO (08:18)
[2025-03-10] MEDS: CYMBALTA DELAYED RELEASE 30 MG PO (08:18)
[2025-03-10] MEDS: WELLBUTRIN XL (24 hour extended release) 150 MG PO (08:18)
[2025-03-10] MEDS: SINGULAIR 10 MG PO (08:18)
[2025-03-10] MEDS: CYMBALTA DELAYED RELEASE 60 MG PO (08:18)
[2025-03-10] MEDS: KLOR-CON PO (08:23)
[2025-03-10] MEDS: SYMBICORT 80/4.5 MCG INHALER 2 PUFF INH ×2 (08:27→19:56)
[2025-03-10] MEDS: SPIRIVA RESPIMAT 2.5 MCG 2 PUFF INH (08:27)
--- NOTE | 2025-03-10 08:37 | W.PN.HOSP.TC ---
Today's Communication/Plan
-
cont abx as per ID
blood pressure control
glycemic control
pain control
pyridium tolterodine as per Urology
Assessment / Plan
Assessment / Plan
Physical Exam
General: No pallor, cyanosis, or jaundice.
HEENT: Throat clear. PERRLA Normocephalic atraumatic
NECK: Supple. No JVD Carotid Bruits
RESPIRATORY: Lungs clear to auscultation. No crackles wheezes stridor
CVS: S1, S2 normal. RRR. No murmur, rub or gallop.
ABDOMEN: Soft, No distension. BS+/normal. right sided flank pain tenderness resolved
EXTREMITIES: No peripheral cyanosis or edema.
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
IMPRESSION:
79F Asthma HTN NIDDM Depression sleep apnea presents w/ persistent right flank pain over the past 24 hours. Reports nausea denies vomiting, fever, chills, trauma, or dysuria. Denies previous history of similar symptoms. ED eval notable for
leukocytosis hypertensive urgency (patient has not taken her morning blood pressure medications prior to presentation to ED). Afebrile, non-tachy, stable respiratory status on room air. CT noted possible right kidney stone distal ureter
nonobstructing.
PLAN:
#suspect Rt Pyelonephritis though UA not suggestive UTI
#nausea
Tele admit
trend WBC, non-septic appearance
received empiric zosyn in ED, cont with Ceftriaxone 2g daily for now
follow urine/blood cx's, one aerobic bottle blood cx pos for coag neg staph likely contaminant
ID eval appreciated
Urology Eval appreciated ureteroscopy performed 03/09/25 no obstruction/stone/lesion noted, stent placed, started on Pyridium and tolterodine
compazine prn nausea
pain control prn Tylenol, IV dilaudid Q4HPRN mod severe pain
#Hypertensive Urgency missed BP medications
resume home antihypertensives w/ holding parameters
Cardizem, HCTZ, Losartan
Hydralazine prn SBP>180 or DBP>100
#NIDDM
A1c 6.4 (prediabetic level)
hold home oral diabetic medication Glimepiride (consider reducing dose if restarting)
Metformin remains on hold d/t recent contrast use
resumed Januvia
Farxiga substituted for Jardiance (Hospital formulary, can resume Jardiance on discharge)
Low dose sliding scale for now, monitor and adjust insulin regimen as necessary
carb controlled diet
Patient on Trulicity 1.5 mg she takes on Tuesday
#Depression
cont home Bupropion and Duloxetine
#Asthma
cont home montelukast and Trelegy
stable respiratory status on room air
of note, patient's is also currently hospitalized here.
DVT ppx Lovenox
Full Code
I spent a total of 40 minutes with the patient or on the floor. More than 50% of this time involved counseling and coordination of care.
Anticipated Discharge: 24 - 48 hours
Subjective/Interval History
-
Date of Service: March 10, 2025
Overall reports feeling well, pain significantly improved, resolved.
Objective Data
-
Labs:
Laboratory Results
03/10/25
05:24
WBC 17.5 H
Hgb 17.8 H
Hct 52.6 H
Plt Count 261 D
Sodium 137
Potassium 4.1 D
Chloride 102
Carbon Dioxide 30
BUN 15
Creatinine 0.7
Glucose 153 H
Calcium 9.5
Vital Signs:
Vital Signs
Temp Pulse Resp BP Pulse Ox
99.0 F 52 16 176/74 93
03/10/25 07:20 03/10/25 08:32 03/10/25 08:32 03/10/25 08:17 03/10/25 08:32
I&O
03/09/25 03/10/25 03/11/25
06:59 06:59 06:59
Intake Total 1200 / 1200 1440 / 1440
Balance 1200 / 1200 1440 / 1440
[2025-03-10] MEDS: JANUVIA 100 MG PO (08:56)
[2025-03-10] MEDS: FARXIGA 10 MG PO (08:56)
--- NOTE | 2025-03-10 11:00 | W.PN.ID1 ---
Date of Service
Date of Service: March 10, 2025
Today's Communication
Continue antibiotics.
Assessment / Plan
Right flank pain
- Passed stone?
Leukocytosis - ongoing ?reactive
Positive blood culture for staph species
- suspect contaminant
Asthma
HTN
DM type II
Depression
Sleep apnea
Arthritis
Hx RBBB
Recommendations:
Continue with empiric ceftriaxone for today. If cultures remain negative, will further de-escalate in the next 24 to 48 hours.
Monitor white count and temperature curve.
Follow pending cultures. Suspect single positive blood culture is a contaminant, no need to treat at present.
Continue with supportive measures.
����������������������������������������������������������
Chief Complaint
-: Leukocytosis and UTI
Subjective / Review of Systems
Review of Systems: No Fever, No Chills and Dysuria
Vital Signs / Physical Exam
Vital Signs
Vital Signs
Temp Pulse Resp BP Pulse Ox
97.2 F 87 20 167/86 92
03/10/25 10:59 03/10/25 10:59 03/10/25 10:59 03/10/25 10:59 03/10/25 10:59
Physical Exam
Constitutional: No Acute Distress, Comfortable and Non-toxic
Eyes: No Conjunctival Hemorrhage
Cardiovascular: S1/S2; Negative S3/S4
Pulmonary: Coarse and Non Labored
Gastrointestinal: Soft, Non Tender and Non Distended
Genito-Urinary: Negative Khan
Extremities: Negative Edema, Cyanosis or Erythema
Skin: Warm and Dry
Neurological: Awake and Alert
Psychological: Calm
Objective Data
Lab Data
Lab Results
03/10/25 05:24
03/10/25 05:24
Estimated Creat Clear 58 ml/min 03/10/25 05:24
Total Bilirubin 0.6 mg/dl (0.2-1.3) 03/08/25 04:59
AST 24 U/L (14-36) 03/08/25 04:59
ALT 21 U/L (0-35) 03/08/25 04:59
Alkaline Phosphatase 136 U/L (38-126) H 03/08/25 04:59
Most recent labs reviewed.
Micro Results:
03/08/25 10:43 Blood Culture - Preliminary
Blood/Venous No Growth in 48 hours- Final report to follow
03/08/25 10:43 Blood Culture - Preliminary
Blood/Venous Coagulase neg. staphylococcus
Additional testing on request
Gram Stain - Preliminary
03/08/25 10:43 Urine Culture - Final - No growth
Urine
03/08/25 04:59 Urine Culture - Final
Urine
Imaging:
03/08/2025 CT abdomen/pelvis with IV contrast: symmetric renal excretion noted. Cannot entirely exclude tiny nonobstructing distal right ureteral calculus versus phlebolith. Limited evaluation of the intestinal tract without oral contrast, but no
intestinal obstruction or free air noted. Sigmoid diverticulosis noted. Unremarkable appendix. Please see full dictation for additional detail.
03/08/2025 Abdominal ultrasound: liver is normal in size. No focal hepatic lesion or intrahepatic biliary dilatation. Normal directional blood flow through the hepatic and portal veins. Gallbladder is physiologically distended with fluid and
shows no shadowing calculi or
[2025-03-10 11:32] LABS: Glucose - Point of Care 168 mg/dl (70-99)
--- NOTE | 2025-03-10 12:04 | CM ---
manager people reviewed patient's chart and met with patient patient states she lives in a one story home with her spouse, patient is independent with adl's and ambulation, has sleep apnea, and CPAP in home that she does not use.
PCP: DR Quintero
Pharmacy: [facility] in [facility]
Plan; Home with spouse when stable.
[2025-03-10] MEDS: NOVOLOG FLEXPEN-LOW RESISTANCE 1 UNITS SC (13:10)
[2025-03-10] MEDS: STERILE WATER FOR INJECTION 20 ML IV (15:12)
[2025-03-10] MEDS: ROCEPHIN 2000 MG IV (15:12)
--- NOTE | 2025-03-10 16:38 | W.PN.URO.CBU ---
Today's Communication / Plan
-
observe
Assessment / Plan
-
? cause of leukocytosis and right flank pain
no stone or obstruction and cx's basically negative
does feel better today- but sx etiology still ?
antibx per ID
discharge with stent and will remove in about 2 weeks as outpt
Diagnosis
-
Date of Service: March 10, 2025
-
Patient Diagnosis:
right flank pain
leukocytosis
s/p diagnostic ureteroscopy and stent
Subjective
-
pt says she does feel better
no fevers- but wbc up
no stone or obstruction on ureteroscopy
cx's other than single blood cx negative
Objective
-
Vital Signs
Temp Pulse Resp BP Pulse Ox
97.8 F 78 20 129/55 92
03/10/25 15:17 03/10/25 15:17 03/10/25 15:17 03/10/25 15:17 03/10/25 15:17
Intake and Output
03/09/25 03/10/25 03/11/25
06:59 06:59 06:59
Intake Total 1200 / 1200 1440 / 1440
Balance 1200 / 1200 1440 / 1440
Intake:
Oral fluids 240 / 240 1440 / 1440
IV fluids (Total) 960 / 960
Other:
Number of approximated SMALL 1
amounts of urine
Number of approximated MODERATE 1 2
amounts of urine
Laboratory Results
03/10/25 05:24
03/10/25 05:24
Review of Systems
-
Constitutional: Fatigue
Respiratory: No Symptoms
Cardiac: No Symptoms
Abdomen/GI: Anorexia
: Frequency
Physical Exam
-
General - no acute distress
Abdomen - soft, non-tender
[2025-03-10 16:46] LABS: Glucose - Point of Care 209 mg/dl (70-99)
[2025-03-10] MEDS: DETROL LA 4 MG PO (17:33)
[2025-03-10] MEDS: NOVOLOG FLEXPEN-LOW RESISTANCE 2 UNITS SC (17:34)
[2025-03-10] MEDS: LIPITOR 10 MG PO (21:30)
[2025-03-10 22:11] LABS: Glucose - Point of Care 154 mg/dl (70-99)
[2025-03-11 02:56] VITALS: BP 148/74
[2025-03-11 05:45] LABS: Hematocrit 51.0 % (37.0-47.0); Hemoglobin 17.3 g/dL (12.0-16.0); Mean Corp Hgb Conc. 33.9 g/dL (33.0-37.0); Mean Corpuscular Volume 88.7 fL (81.0-99.0); Platelet Count 241 10^3/uL (130-400); Red Cell Dist. Width 13.4 % (11.5-14.5)
[2025-03-11 06:08] LABS: Blood Urea Nitrogen 18 mg/dl (7-17); Calcium 9.3 mg/dl (8.4-10.2); Carbon Dioxide 30 mmol/L (22-30); Chloride 100 mmol/L (98-107); Estimated Creatinine Clearance 58 ml/min; Glucose 131 mg/dl (70-99); Magnesium 2.0 mg/dl (1.6-2.3); Potassium 3.4 mmol/L (3.5-5.1); Sodium 137 mmol/L (135-145); eGFR > 60.00
[2025-03-11 07:30] VITALS: BP 160/89
[2025-03-11] MEDS: SYMBICORT 80/4.5 MCG INHALER 2 PUFF INH (07:32)
[2025-03-11] MEDS: SPIRIVA RESPIMAT 2.5 MCG 2 PUFF INH (07:32)
[2025-03-11 07:55] LABS: Glucose - Point of Care 145 mg/dl (70-99)
[2025-03-11] MEDS: NOVOLOG FLEXPEN-LOW RESISTANCE SC (07:59)
[2025-03-11] MEDS: JANUVIA 100 MG PO (08:29)
[2025-03-11] MEDS: CARDIZEM CD 240 MG PO (08:29)
[2025-03-11] MEDS: WELLBUTRIN XL (24 hour extended release) 300 MG PO (08:29)
[2025-03-11] MEDS: WELLBUTRIN XL (24 hour extended release) 150 MG PO (08:29)
[2025-03-11] MEDS: COZAAR 100 MG PO (08:31)
[2025-03-11] MEDS: SINGULAIR 10 MG PO (08:31)
[2025-03-11] MEDS: DETROL LA 4 MG PO (08:31)
[2025-03-11] MEDS: ORETIC 25 MG PO (08:31)
[2025-03-11] MEDS: CYMBALTA DELAYED RELEASE 60 MG PO (08:32)
[2025-03-11] MEDS: CYMBALTA DELAYED RELEASE 30 MG PO (08:32)
[2025-03-11] MEDS: FARXIGA 10 MG PO (08:32)
[2025-03-11] MEDS: KCL 20 MEQ PO (09:52)
--- NOTE | 2025-03-11 10:58 | W.PN.ID1 ---
Date of Service
Date of Service: March 11, 2025
Today's Communication
Transition to oral cefdinir for an additional 7 days.
Assessment / Plan
Right flank pain
- Passed stone?
Leukocytosis - ongoing ?reactive
Positive blood culture for staph species
- suspect contaminant
Asthma
HTN
DM type II
Depression
Sleep apnea
Arthritis
Hx RBBB
Recommendations:
Cultures remain negative.
Transition to oral cefdinir for an additional 7 days.
Continue with supportive measures.
Outpatient follow-up with Urology regarding stent.
����������������������������������������������������������
Chief Complaint
-: Leukocytosis and UTI
Subjective / Review of Systems
Review of Systems: No Fever, No Chills and Dysuria
Vital Signs / Physical Exam
Vital Signs
Vital Signs
Temp Pulse Resp BP Pulse Ox
97.2 F 84 16 160/89 92
03/11/25 07:30 03/11/25 07:36 03/11/25 07:36 03/11/25 07:30 03/11/25 07:36
Physical Exam
Constitutional: No Acute Distress, Comfortable and Non-toxic
Eyes: No Conjunctival Hemorrhage
Cardiovascular: S1/S2; Negative S3/S4
Pulmonary: Coarse and Non Labored
Gastrointestinal: Soft, Non Tender and Non Distended
Genito-Urinary: Negative Khan
Extremities: Negative Edema, Cyanosis or Erythema
Skin: Warm and Dry
Neurological: Awake and Alert
Psychological: Calm
Objective Data
Lab Data
Lab Results
03/11/25 05:15
03/11/25 05:15
Estimated Creat Clear 58 ml/min 03/11/25 05:15
Total Bilirubin 0.6 mg/dl (0.2-1.3) 03/08/25 04:59
AST 24 U/L (14-36) 03/08/25 04:59
ALT 21 U/L (0-35) 03/08/25 04:59
Alkaline Phosphatase 136 U/L (38-126) H 03/08/25 04:59
Most recent labs reviewed.
Micro Results:
03/08/25 10:43 Blood Culture - Preliminary
Blood/Venous No Growth in 72 hours- Final report to follow
03/08/25 10:43 Blood Culture - Preliminary
Blood/Venous Coagulase neg. staphylococcus
Additional testing on request
Gram Stain - Preliminary
03/08/25 10:43 Urine Culture - Final
Urine
03/08/25 04:59 Urine Culture - Final
Urine
Imaging:
03/08/2025 CT abdomen/pelvis with IV contrast: symmetric renal excretion noted. Cannot entirely exclude tiny nonobstructing distal right ureteral calculus versus phlebolith. Limited evaluation of the intestinal tract without oral contrast, but no
intestinal obstruction or free air noted. Sigmoid diverticulosis noted. Unremarkable appendix. Please see full dictation for additional detail.
03/08/2025 Abdominal ultrasound: liver is normal in size. No focal hepatic lesion or intrahepatic biliary dilatation. Normal directional blood flow through the hepatic and portal veins. Gallbladder is physiologically distended with fluid and
shows no shadowing calculi or
[2025-03-11 11:15] VITALS: BP 136/66
[2025-03-11 12:03] LABS: Glucose - Point of Care 167 mg/dl (70-99)
--- NOTE | 2025-03-11 12:53 | W.PN.HOSP.TC ---
Addendum entered and electronically signed by Chidi Rivera MD 03/11/25 15:38:
Cannot specify acuity of suspected pyelonephritis
Original Note:
Today's Communication/Plan
-
Monitor vitals
See plan
Per infectious disease transition to p.o. cefdinir
Discharge today
Patient will follow-up with urology outpatient
Time of discharge 38 minutes
Assessment / Plan
Assessment / Plan
Physical Exam
General: No pallor, cyanosis, or jaundice.
HEENT: Throat clear. PERRLA Normocephalic atraumatic
NECK: Supple. No JVD Carotid Bruits
RESPIRATORY: Lungs clear to auscultation. No crackles wheezes stridor
CVS: S1, S2 normal. RRR. No murmur, rub or gallop.
ABDOMEN: Soft, No distension. BS+/normal. right sided flank pain tenderness resolved
EXTREMITIES: No peripheral cyanosis or edema.
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
IMPRESSION:
79F Asthma HTN NIDDM Depression sleep apnea presents w/ persistent right flank pain over the past 24 hours. Reports nausea denies vomiting, fever, chills, trauma, or dysuria. Denies previous history of similar symptoms. ED eval notable for
leukocytosis hypertensive urgency (patient has not taken her morning blood pressure medications prior to presentation to ED). Afebrile, non-tachy, stable respiratory status on room air. CT noted possible right kidney stone distal ureter
nonobstructing.
PLAN:
#suspect Rt Pyelonephritis
#nausea
trend WBC, non-septic appearance
received empiric zosyn in ED, cont with Ceftriaxone; infectious disease transition to p.o. cefdinir for additional 7 days.
follow urine/blood cx's, one aerobic bottle blood cx pos for coag neg staph likely contaminant
ID eval appreciated
Urology Eval appreciated ureteroscopy performed 03/09/25 no obstruction/stone/lesion noted, stent placed, started on Pyridium and tolterodine.
Status post stent, follow-up with urology outpatient
compazine prn nausea
pain control prn Tylenol, IV dilaudid Q4HPRN mod severe pain
#Hypertensive Urgency missed BP medications
resume home antihypertensives w/ holding parameters
Cardizem, HCTZ, Losartan
Hydralazine prn SBP>180 or DBP>100
#NIDDM
A1c 6.4 (prediabetic level)
hold home oral diabetic medication Glimepiride (consider reducing dose if restarting)
Metformin remains on hold d/t recent contrast use
resumed Januvia
Farxiga substituted for Jardiance (Hospital formulary, can resume Jardiance on discharge)
Low dose sliding scale for now, monitor and adjust insulin regimen as necessary
carb controlled diet
Patient on Trulicity 1.5 mg she takes on Tuesday
Hypokalemia
Replete
#Depression
cont home Bupropion and Duloxetine
#Asthma
cont home montelukast and Trelegy
stable respiratory status on room air
DVT ppx Lovenox
Full Code
Anticipated Discharge: Today
Subjective/Interval History
-
Date of Service: March 11, 2025
Denies pain
Objective Data
-
Labs:
Laboratory Results
03/11/25
05:15
WBC 13.8 H
Hgb 17.3 H
Hct 51.0 H
Plt Count 241
Sodium 137
Potassium 3.4 L
Chloride 100
Carbon Dioxide 30
BUN 18 H
Creatinine 0.7
Glucose 131 H
Calcium 9.3
Vital Signs:
Vital Signs
Temp Pulse Resp BP Pulse Ox
97.4 F 89 16 136/66 92
03/11/25 11:15 03/11/25 11:15 03/11/25 11:15 03/11/25 11:15 03/11/25 11:15
I&O
03/10/25 03/11/25 03/12/25
06:59 06:59 06:59
Intake Total 1440 / 1440 900 / 900
Balance 1440 / 1440 900 / 900
--- NOTE | 2025-03-11 13:05 | W.DCSUMMARY ---
Discharge Summary
Discharge Data
Date of Admission: 03/08/25
Date of Discharge: 03/11/25
-
Pending Results: No
Hospital Course
79-year-old female with past medical history of hypertension, diabetes mellitus, depression, sleep apnea, asthma came to the hospital with persistent right flank pain along with nausea. CT scan showed possible right kidney stone distal ureter
nonobstructing. Right-sided pyelonephritis was suspected given patient symptoms and presentation. Patient also had 1 set of blood culture which was positive for coag negative staph which was likely thought was contaminant. Patient was seen by
infectious disease throughout hospitalization who had the patient on IV antibiotic initially which was later transitioned to p.o. cefdinir on discharge. Patient was also seen by urology. Patient underwent cystoscopy which did not show any
obstruction/stone or lesion. Stent was placed and patient was instructed to follow-up with urology closely outpatient. Over time patient symptoms continue to improve and she was discharged home with instructions to follow-up closely with all her
physicians outpatient.
Discharge Plan
-
Patient Disposition: Home (Routine Discharge)
Discharge Diagnosis/Procedures: Suspect pyelonephritis
Questionable passed stone status post cystoscopy, right retrograde pyelogram, right ureteroscopy and stent
Leukocytosis
Positive blood culture
Diet: As tolerated
Activity: As tolerated
Driving Restrictions: As prior to admission
Bathing Restrictions: None
Referrals:
Anthony Quintero MD [Family Provider, Internal Medicine] - in less than 1 week
Luis Fernando Coleman Jr., MD [Active, Urology] - in one week
Prescriptions:
New
acetaminophen 325 mg Tablet
650 mg PO Q4HPRN PRN (Reason: mild pain/OWENS/temp> 100.4F) Qty: 0 0RF
tolterodine 4 mg Capsule,Extended Release 24hr
4 mg PO DAILY Qty: 10 0RF
phenazopyridine 100 mg Tablet
100 mg PO Q8H Qty: 15 0RF
cefdinir 300 mg Capsule
300 mg PO Q12 Qty: 14 0RF
diltiazem HCl 240 mg Capsule,Extended Release 24hr
240 mg PO DAILY Qty: 30 0RF
Continued
atorvastatin [Lipitor] 10 MG tablet
10 mg PO HS
metformin [Glucophage] 1,000 MG tablet
1,000 mg PO DAILY
Januvia 100 MG tablet
100 mg PO DAILY
duloxetine 60 MG capsule,delayed release(DR/EC)
90 mg PO DAILY
bupropion HCl 300 MG tablet extended release 24 hr
150 mg PO DAILY
montelukast 10 mg Tablet
10 mg PO DAILY
hydrochlorothiazide 25 mg Tablet
25 mg PO DAILY
losartan 100 mg Tablet
100 mg PO DAILY
Jardiance 25 mg Tablet
25 mg PO DAILY
Trulicity 1.5 mg/0.5 mL Pen Injector
1.5 mg SC QWEEK
Trelegy Ellipta 100-62.5-25 mcg Blister With Device
1 inh INHALATION DAILY
Held
glimepiride 4 mg Tablet
8 mg PO DAILY
Hold Instructions: Restart when okay with primary care provider
Discontinued
diltiazem HCl [Matzim LA] 180 mg Tablet Extended Release 24 Hr
180 mg PO DAILY
Discharge Orders:
Discharge Patient (As Directed); Ordered 03/11/25
Ordered By: Chidi Rivera
Discharge Date and Time
Discharge Date/Time: 03/11/25 16:23
Print Language: GEORGIAN
[2025-03-11] MEDS: NOVOLOG FLEXPEN-LOW RESISTANCE 1 UNITS SC (13:13)
--- NOTE | 2025-03-11 13:18 | CM ---
Patient is cleared for discharge to home. No identified needs. Spouse will transport home today.
--- NOTE | 2025-03-11 13:39 | CM ---
Addendum entered by Haritha Rosas 03/11/25 15:27:
CM spoke with Haritha as well as her neighbor who will be picking both Haritha and her up today to go home.
Original Note:
Patient is cleared for discharge to home. No identified needs. CM to speak with patient regarding transport home today.
--- NOTE | 2025-03-11 15:14 | PN.CDI ---
CDI
- -
CDI:
Physician Documentation Request
Admit Date: 03/08/25 12:25
Dear Doctor Miguel,
Please review the following and provide your response in the progress notes.
Clinical Indicators:
Pt admitted with suspected right pyelonephritis/ passed stone s/p ureteroscopy with right stent.
Progress notes,' #suspect Rt Pyelonephritis ..'
Clarify which of the following accurately represents the acuity of the (#suspect Rt Pyelonephritis )
Acute
Chronic
Acute on Chronic
Other ( please specify)
Use of terms such as suspected, likely, concern for, or probable (associated with a specific diagnosis that is being evaluated, monitored, or treated as if it exists) are acceptable and can be coded in the inpatient setting, when documented at the
time of discharge.
Thank you,
Suzanne Dinero RN
CDI Specialist
[place] [facility]
Please use your independent medical judgment in providing your response.
[2025-03-11 15:30] VITALS: BP 151/79
== END 2025-03-11 16:23 | disposition home or self-care (01) | DRG 660 ==
LOC: 3 WEST ACU 12:25
PROVIDERS: Emergency Medicine; ADMITTING PHYSICIAN Internal Medicine; ATTENDING PHYSICIAN Internal Medicine; CONSULT PHYSICIAN Internal Medicine Infectious Disease; CONSULT PHYSICIAN Specialist; EMERGENCY PHYSICIAN Student in an Organized Health Care Education/Training Program; FAMILY PHYSICIAN Internal Medicine
PROC: BT1D1ZZ Fluoroscopy of Right Kidney, Ureter and Bladder using Low Osmolar Contrast (ICD-10-PCS; 2025-03-09)
PROC: 0T768DZ Dilation of Right Ureter with Intraluminal Device, Via Natural or Artificial Opening Endoscopic (ICD-10-PCS; 2025-03-09)
DX: N12 Tubulo-interstitial nephritis, not specified as acute or chronic (principal); N20.1 Calculus of ureter; E87.6 Hypokalemia; E11.9 Type 2 diabetes mellitus without complications; F32.A Depression, unspecified; G47.30 Sleep apnea, unspecified; J45.909 Unspecified asthma, uncomplicated; I16.0 Hypertensive urgency; I10 Essential (primary) hypertension; Z79.84 Long term (current) use of oral hypoglycemic drugs; Z79.85 Long-term (current) use of injectable non-insulin antidiabetic drugs; Z79.899 Other long term (current) drug therapy
CPT/HCPCS: 74177; 74420; 76000; 76700; 80048; 80053; 81003; 81015; 82962; 83036; 83690; 83735; 84100; 85025; 85027; 87040; 87086; 87154; 87205; 93005; 94640; 96361; 96365; 96375; 96376; 99285; C1758; Q9967

== ENCOUNTER 2025-03-28 06:29 | Day surgery (SDC) | payer OTHER, SELFPAY ==
--- NOTE | 2025-03-26 15:38 | PTCARENOTE ---
Patient took Trulicity dose 03/24/25, she was unaware to hold medication 7 days prior to surgery.
Dr Barrios notified.
Patient advised to fast after breakfast 03/27/25 only drinking CL throughout day and then NPO after MN.
Patient was called and above explained. Patient read back instructions and verbalized understanding.
[2025-03-28 08:30] VITALS: BMI 28.2
[2025-03-28 08:35] VITALS: BP 173/73
[2025-03-28 08:40] VITALS: BMI 28.2
[2025-03-28] MEDS: NORMOSOL-R/PLASMALYTE-A 1000 IV (08:50)
[2025-03-28 08:52] LABS: Glucose - Point of Care 128 mg/dl (70-99)
[2025-03-28 09:45] VITALS: BP 133/73
[2025-03-28 10:00] VITALS: BP 150/76
[2025-03-28 10:15] VITALS: BP 152/71
[2025-03-28 10:23] VITALS: BP 145/72
== END 2025-03-28 10:47 | disposition home or self-care (01) ==
LOC: SDS 06:29
PROVIDERS: ATTENDING PHYSICIAN Specialist
DX: N20.0 Calculus of kidney (principal); Z46.6 Encounter for fitting and adjustment of urinary device
CPT/HCPCS: 50386; 82962